=== PATIENT | male | born 1950 | race Caucasian/White ===

== ENCOUNTER → 2019-02-12 07:37 | Day surgery (SDC) | payer OTHER ==
[2012-08-15 11:43] VITALS: BMI 30.3
== END | disposition home or self-care (01) ==
LOC: D.OPS 07:37
PROVIDERS: ATTEND Surgery
DX: K21.9 Gastro-esophageal reflux disease without esophagitis (principal); Z01.812 Encounter for preprocedural laboratory examination

== ENCOUNTER 2020-02-06 06:25 | Day surgery (SDC) | payer OTHER ==
[2020-02-04 16:19] LABS: HEMATOCRIT 46.4 % (42.0-54.0); HEMOGLOBIN 15.4 g/dL (13.5-17.5); MCH 29.5 pg (26.0-34.0); MCHC 33.2 g/dL (31.0-37.0); MCV 88.9 fL (80.0-100.0); MEAN PLATELET VOLUME 11.1 fL (7.4-10.4); RBC 5.22 10x6/uL (4.20-6.10); RDW 13.6 % (11.5-14.5); WBC 10.8 10x3/uL (4.8-10.8)
[~2020-02-06] VITALS: Ht 177.8 cm; Wt 97.5 kg
--- NOTE | ~2020-02-06 | OP ---
PATIENT NAME: MOMO ZAMORA MEDICAL RECORD: [id number] :54 LOCATION:[facility] ADMISSION DATE: SURGEON: CARMEL SANCHEZ MD DATE OF OPERATION: 02/06/2020 PREOPERATIVE DIAGNOSES: Lumbar spinal stenosis and foraminal stenosis, L4-L5, right. POSTOPERATIVE DIAGNOSES: Lumbar spinal stenosis and foraminal stenosis, L4-L5, right. PROCEDURE: Lumbar laminectomy, medial facetectomy, and foraminotomy L4-L5 on the right with METRx retractor. SURGEON: Carmel Sanchez MD GAMBRELER HELPER: Destin Harris APN DESCRIPTION OF TECHNIQUE: After induction of general endotracheal anesthesia, the patient was rolled prone on a Austin frame. The lumbar spine was prepped and draped in usual sterile fashion. Fluoroscopic x-ray and spinal needle localized the L4-L5 interspace on the right side. Dilators were used to advance the METRx retractor at L4-L5 interspace on the right. The level was confirmed with fluoroscopic x-ray. A microscope and Midas Blaise drill were used to perform a laminectomy, medial facetectomy, and foraminotomy at L4-L5 on the right. Hypertrophied ligamentum flavum was removed with Cloward rongeurs. This decompressed the L4-L5 nerve root well. The disc space was inspected and found to cause no significant nerve root compression. Meticulous hemostasis was maintained throughout the wound. Wound was irrigated with copious amounts of Ancef irrigant solution. Throughout the procedure, Destin Harris provided hemostasis and retraction. TRANSINT:[id number] Voice Confirmation ID: [id number] DOCUMENT ID: [id number] CARMEL SANCHEZ MD CC: [id number] DICTATION DATE: 02/10/20824 DESIGN MANAGER: 02/10/201936 [facility] [place] 02/06/[address] [facility] [address] [place] [id number]
[2020-02-06 05:55] VITALS: BP 148/76; Ht 177.8 cm; Wt 97.5 kg
[~2020-02-06 06:25] MED LIST: CIPRO500 MG PO; NEXIUM20 MG PO
[2020-02-06] MEDS ORDERED: HYDROCODON-ACE1 EA10 PO (09:09)
== END 2020-02-06 10:50 | disposition home or self-care (01) ==
LOC: D.OPS 06:25 → D.PAN 07:30 → D.OPS 10:50
PROVIDERS: Anesthesiology; ATTEND Neurological Surgery
DX: M48.061 Spinal stenosis, lumbar region without neurogenic claudication (principal); M54.16 Radiculopathy, lumbar region